=== PATIENT | female | born 1990 | race Two or more races ===

== ENCOUNTER 2021-11-25 18:28 | Emergency (ER) | payer SELFPAY ==
[~2021-11-25] VITALS: Ht 170.2 cm; Wt 171.0 kg
[2021-11-25] MEDS ORDERED: mag hydrox/Alum hydrox/simeth 30ml oral suspension PO ONE (20:40)
[2021-11-25] MEDS ORDERED: LIDOcaine Viscous 15ml cup TP ONE (20:40)
[2021-11-25 21:16] LABS: BASOPHILS # (AUTO) 0.1 X10'3 (0-0.2); BASOPHILS % (AUTO) 0.5 % (0-1); EOSINOPHILS % (AUTO) 0.3 % (0-6); HEMATOCRIT 44.4 % (35.0-45.0); HEMOGLOBIN 14.9 g/dl (12.0-16.0); LYMPHOCYTES # (AUTO) 2.9 X10'3 (1.1-4.8); LYMPHOCYTES % (AUTO) 21.6 % (21-51); MEAN CORPUSCULAR HEMOGLOBIN 29.4 PG (27.0-31.0); MEAN CORPUSCULAR HGB CONC 33.6 g/dL (33.0-36.5); MEAN CORPUSCULAR VOLUME 87.3 FL (78-98); MEAN PLATELET VOLUME 8.1 FL (7.4-10.4); MONOCYTES # (AUTO) 1.2 X10'3 (0-0.9); NEUTROPHILS # (AUTO) 9.1 X10'3 (1.8-7.7); NEUTROPHILS % (AUTO) 68.6 % (42-75); PLATELET COUNT 322 X10'3 (140-440); RED BLOOD COUNT 5.08 X10'6 (4.20-5.60); RED CELL DISTRIBUTION WIDTH 14.2 % (11.5-14.5); WHITE BLOOD COUNT 13.2 X10'3 (4.5-11.0)
[2021-11-25 21:19] VITALS: BP 165/103
[2021-11-25 21:31] LABS: APTT 28 SECONDS (22-32)
[2021-11-25 21:34] LABS: ALANINE AMINOTRANSFERASE 56 U/L (12-78); ALBUMIN 3.6 G/DL (3.4-5.0); ALBUMIN/GLOBULIN RATIO 0.7 (1.1-1.5); ALKALINE PHOSPHATASE 57 IU/L (46-116); ANION GAP 5 (8-16); ASPARTATE AMINO TRANSFERASE 21 U/L (10-37); BILIRUBIN,TOTAL 0.2 MG/DL (0.1-1.0); BLOOD UREA NITROGEN 21 MG/DL (7-18); BUN/CREATININE RATIO 23.9 (6.6-38.0); CALCIUM 8.6 MG/DL (8.5-10.1); CHLORIDE 103 MMOL/L (99-107); CREATININE 0.88 MG/DL (0.40-0.90); GLUCOSE 92 MG/DL (70-104); POTASSIUM 4.2 MMOL/L (3.5-5.1); SODIUM 138 MMOL/L (135-145); TOTAL CARBON DIOXIDE 29.7 MMOL/L (24-32); TOTAL PROTEIN 8.5 G/DL (6.4-8.2); eGFR 75 ML/MIN
[2021-11-25 21:43] LABS: LIPASE 94 U/L (73-393)
[2021-11-25 21:52] LABS: COLOR,URINE YELLOW (Yellow); GLUCOSE, URINE NEGATIVE (Neg); KETONES,URINE NEGATIVE (Neg); LEUKOCYTE ESTERASE ,URINE SMALL (Neg); NITRITES, URINE NEGATIVE (Neg); OCCULT BLOOD,URINE TRACE-INTACT (Neg); PROTEIN,URINE NEGATIVE (Neg); UROBILINOGEN,URINE 0.2 E.U/dL (0.2-1.0)
[2021-11-25 21:54] LABS: CLARITY,URINE SLIGHTLY CLOUDY (Clear); UA COLLECTION TYPE CLN CATCH MIDSTREAM
[2021-11-25] MEDS ORDERED: LORazepam 1 MG tablet PO ONE (21:55)
[2021-11-25 22:03] LABS: BACTERIA,URINE FEW /HPF (Neg); MUCUS STRANDS NONE SEEN /LPF (Neg); RBC,URINE 0-2 /HPF (0-2); SQUAMOUS EPITHELIAL CELL,UR MODERATE /LPF (FEW); WBC,URINE 0-4 /HPF (0-4)
== END 2021-11-25 22:37 | disposition home or self-care (01) ==
LOC: ER 18:30
DX: R07.89 Other chest pain (principal); F41.9 Anxiety disorder, unspecified; R05.9 Cough, unspecified; F17.200 Nicotine dependence, unspecified, uncomplicated; Z90.49 Acquired absence of other specified parts of digestive tract
CPT/HCPCS: 36415; 80053; 81001; 83690; 83735; 83880; 84484; 85025; 85610; 85730; 93005; 99284

== ENCOUNTER 2025-09-11 18:57 | Emergency (ER) | payer MEDICAID ==
[~2025-09-11] VITALS: Ht 167.6 cm; Wt 200.0 kg
--- NOTE | 2025-09-11 19:11 | ELECTROCARDIOGRAPH REPORT ---
[facility] Test Date: 2025-09-11 Test Time: 19:02:07 Pat Name: SONYA RANGEL Department: EMERGENCY ROOM Room: Gender: F All Around Presser: MARKUS : 1990 Requested By: KADEN AZUL Order Number: [id number] Reading MD: Dr. ANN Cole Measurements Intervals [place] Rate: 74 P: 33 ND: 147 QRS: 88 QRSD: 85 T: 17 QT: 384 QTc: 426 Interpretive Statements Sinus rhythm Low voltage, precordial leads Electronically Signed On 09-13-2025 11:47:[address] ANN oCle Please click the below link to view image of tracing.
--- NOTE | 2025-09-11 19:23 | RADIOLOGY REPORT ---
EXAM: DI CHEST,SINGLE VIEW HISTORY: CP TECHNIQUE: 1 view of the chest COMPARISON: None FINDINGS/IMPRESSION: LUNGS: No pleural effusion, consolidation, or pneumothorax. MEDIASTINUM: Unremarkable. BONES: No acute osseous abnormality. OTHER: None.
[2025-09-11 20:08] LABS: MEAN PLATELET VOLUME 8.9 FL (7.4-10.4); RED CELL DISTRIBUTION WIDTH 15.8 % (11.5-14.5)
[2025-09-11 20:28] LABS: CREATININE 1.07 MG/DL (0.40-0.90); PRO BRAIN NATRIURETIC PEPTIDE < 30 PG/ML (0-125); TOTAL CARBON DIOXIDE 27.7 MMOL/L (24-32); eCRCL 69 ML/MIN; eGFR 59 ML/MIN
[2025-09-11 22:24] VITALS: BP 168/95; PULSE 60; RESP 18; TEMP 97.3; O2SAT 99
--- NOTE | 2025-09-11 22:35 | Physician Documentation ---
History of Present Illness General Chief Complaint: Chest Pain Stated Complaint: CHEST PAIN Time Seen by MD: 22:34 Primary Medical Doctor: none History of Present Illness Initial Comments The patient is a 34-year-old female presents to the emergency room with a complaint of chest discomfort. Patient states last time unfortunately the bed she had some epigastric chest discomfort that radiated up into her neck. She states she went to bed and she states that she had a few more episodes of this discomfort throughout the day today. Patient states the pain is mild and radiates up to her left neck. The patient has no cardiac history. The patient has no fevers or chills. Patient states she had a kidney infection diagnosed low over a week ago [place] Patient denies any shortness of breath. The patient's symptoms are mild to moderate and persistent. Medication Reconciliation Allergies: Coded Allergies: No Known Allergies (Unverified , 11/25/21) Past Medical History Past Medical History: No Pertinent History Past Surgical History: cholecystectomy Alcohol Use: None Drug Use: none Lives In: Home Occupation: employed Review of Systems All Other Systems at this time: Reviewed and Negative Physical Exam Physical Exam Vital Signs: Temperature: 97.3, Heart Rate: 60, Respiratory Rate: 18, BP: 168/95, Pulse Oximetry: 99, Weight: 200.000 Physical Exam VITALS: Reviewed and as above. GENERAL: Alert, no apparent distress. HEENT: Normocephalic, atraumatic, PERRL, EOMI, dry mucosa, no erythema RESPIRATORY: Lungs clear, normal breath sounds, no respiratory distress. CHEST: No accessory muscle use, no retractions CV: Regular rate, rhythm, no edema, no murmur, No: JVD GI: Soft, non-tender, bowels sounds present, no rebound, guarding, or rigidity BACK: No CVA tenderness, or swelling MUSCULOSKELETAL: No deformities, no edema SKIN: Warm and dry, no rash NEURO: Oriented x4, No motor or sensory deficit PSYCH: Normal mood and affect, no agitation Progress Results/Orders Results/Orders Orders - KADEN ROBLERO MD,Single View (09/11/25 19:10) Monitor (09/11/25 19:10) Saline Lock (09/11/25 19:10) Oxygen (09/11/25 19:10) Completed Orders - KADEN ROBLERO MD,Single View (09/11/25 19:10) Cbc/Diff (09/11/25 19:10) BMP (09/11/25 19:10) PBNP (09/11/25 19:10) Electrocardiogram (09/11/25 19:10) Hs Troponin I W Calculations (09/11/25 19:10) Hs Troponin I W Calculations (09/11/25 21:10) Vital Signs 09/11/25 09/11/25 09/11/25 19:00 19:08 22:24 Temp 97.3 97.3 Pulse 72 60 Resp 18 18 B/P (MAP) 157/97 (117) 168/95 (119) Pulse Ox 97 99 Laboratory Tests Test 09/11/25 19:25 09/11/25 21:18 White Blood Count 6.3 Red Blood Count 5.13 Hemoglobin 14.4 Hematocrit 43.4 Mean Corpuscular Volume 84.6 Mean Corpuscular Hemoglobin 28.1 Mean Corpuscular Hemoglobin Concent 33.2 Red Cell Distribution Width 15.8 H Platelet Count 273 Mean Platelet Volume 8.9 Neutrophils (%) (Auto) 65.0 Lymphocytes (%) (Auto) 26.8 Monocytes (%) (Auto) 6.6 Eosinophils (%) (Auto) 1.1 Basophils (%) (Auto) 0.5 Neutrophils # (Auto) 4.1 Lymphocytes # (Auto) 1.7 Monocytes # (Auto) 0.4 Eosinophils # (Auto) 0.1 Basophils # (Auto) 0.0 CBC Comment Sodium Level 137 Potassium Level 3.8 Chloride Level 104 Carbon Dioxide Level 27.7 Anion Gap 5 L Blood Urea Nitrogen 11 Creatinine 1.07 H Estimated GFR/1.73 m2 59 BUN/Creatinine Ratio 10.3 Glucose Level 100 Calcium Level 8.9 Troponin I High Sensitivity 5 4 Pro-B-Type Natriuretic Peptide < 30 Albumin 3.7 Chemistry Comments Troponin I High Sens Percent Delta 20 Troponin I Hi Sens Absolute Change -1 EKG/XRAY/CT/US/VASC/MRI Chest X-Ray : Additional Comments Patient: SONYA RANGEL Medical Record: [id number] [facility] : 1990, Age: 34 Sex: Female Location: ER Patient Status: REG ER Service Date/Time: 09/11/251909 Ordering Physician: KADEN ROBLERO MD Exam: CHEST,SINGLE VIEW EXAM: DI CHEST,SINGLE VIEW HISTORY: CP TECHNIQUE: 1 view of the chest COMPARISON: None FINDINGS/IMPRESSION: LUNGS: No pleural effusion, consolidation, or pneumothorax. MEDIASTINUM: Unremarkable. BONES: No acute osseous abnormality. OTHER: None. Electronically Signed by:JUVE HAWKINS MD Date & Time: 09/11/251920 Dictated by: JUVE HAWKINS MD Dictation date and time: 09/11/251909 Primary Care Provider: NO PRIMARY CARE PROVIDER cc: KADEN ROBLERO MD ~ Medical Decision Making Additional information obtaine: old records Findings The patient's EKG was interpreted by me it demonstrates a sinus rhythm rate of 74 with a right axis deviation the patient has no ST-elevation or ST-depression it is a sinus rhythm. The EKG was interpreted as a borderline EKG. The patient's pulse oximetry was interpreted as normal and adequate. The patient has some chest discomfort that radiates to her neck she is comfortable appearing and in no distress she has no shortness of breath her EKG does show a bit of a r ight axis deviation but she has had that on previous EKGs as well. The patient denies any shortness of breath at this time the patient appears comfortable she will be advised to return if her symptoms worsened. Prior hospitalizations has been reviewed. Her troponins have been negative and her EKG appears nonischemic. Differential Diagnosis myocardial ischemia, chest wall pain, pleurisy, pulmonary embolism Departure Time of Disposition: 23:11 Disposition: 01 HOME / SELF CARE / HOMELESS Impression: Primary Impression: Atypical chest pain Discharge Instructions: Nonspecific Chest Pain, Adult Referrals: NO PRIMARY CARE PROVIDER (PCP) Signature Scribe Signature: No scribe Attestation: The note accurately reflects work and decisions made by me.Kaden Roblero MD 09/12/25 05:33 KADEN ROBLERO MD Sep 11, 2025 22:35
== END 2025-09-11 23:27 | disposition home or self-care (01) ==
LOC: ER 18:58
DX: R07.89 Other chest pain (principal); R06.02 Shortness of breath
CPT/HCPCS: 36415; 71045; 80048; 83880; 84484; 85025; 93005; 99285